=== PATIENT | male | born 1985 | race Two or more races ===

== ENCOUNTER 2019-09-26 10:29 | Emergency (ER) | payer OTHER ==
[~2019-09-26] VITALS: Ht 165.1 cm; Wt 68.0 kg
--- NOTE | 2019-09-26 10:29 | NUR ---
ED Nurse Note: Pt arrived with RA 826 due to anxiety attack after phone call with father. Pt stated he fainted but caught himself with his hands. pt denies head trauma and denies pain.
[2019-09-26 10:30] VITALS: BP 119/81
[2019-09-26] MEDS ORDERED: LORazepam 0.5mg tab ORAL ONE (11:00)
--- NOTE | 2019-09-26 11:11 | Emergency Room Report ---
History of Present Illness General Chief Complaint: General Complaint Source: Patient, EMS Present Illness HPI Patient presents with paramedics for reports of a syncopal episode An argument with his father states that his father called him ' stupid' He began feeling palpitations and anxious and reports Lapse of consciousness after this Denies any headache at this time he feels some mild palpitations otherwise denies any chest pain denies any recent illness denies any medications Allergies: Coded Allergies: No Known Allergies (Unverified , 09/26/19) Patient History Past Medical History: see triage record Reviewed Nursing Documentation: PMH: Agreed; PSxH: Agreed Nursing Documentation-PMH Hx Hypertension: Yes History Of Psychiatric Problem: Yes - ANXIETY, DEPRESSION Review of Systems All Other Systems: negative except mentioned in HPI Physical Exam Vital Signs Date Time Temp Pulse Resp B/P (MAP) Pulse Ox O2 Delivery O2 Flow Rate FiO2 09/26/19 10:25 80 17 119/81 (94) 98 Room Air 09/26/19 10:30 97.9 Sp02 EP Interpretation: reviewed, normal General Appearance: well appearing, no apparent distress Head: normocephalic, atraumatic Eyes: bilateral eye PERRL, bilateral eye EOMI ENT: hearing grossly normal, normal pharynx, TMs + canals normal, uvula midline Neck: full range of motion, supple, no meningismus, no bony tend Respiratory: lungs clear, normal breath sounds, no rhonchi, no respiratory distress, no retraction, no accessory muscle use Cardiovascular #1: normal peripheral pulses, regular rate, rhythm, no edema, no gallop, no JVD, no murmur Gastrointestinal: normal bowel sounds, non tender, soft, no mass, no organomegaly, non-distended, no guarding, no hernia, no pulsatile mass, no rebound Musculoskeletal: normal inspection Neurologic: motor strength/tone normal, body sander III-XII nml as tested, oriented x3 , sensory intact, responsive Psychiatric: mood/affect normal - However reports feeling anxious Skin: no rash Lymphatic: normal inspection, no adenopathy Medical Decision Making Diagnostic Impression: Primary Impression: Syncope ER Course Patient is a fairly complex patient with multiple differential to consideration including but not limited to cardiac cardiopulmonary and vascular emergencies Patient appears to have likely had a vasovagal reaction to stress reaction The EKG is normal limits patient resting comfortably and hemodynamically stable At this time is appropriate for close outpatient follow-up EKG Diagnostic Results Rate: normal Rhythm: NSR ST Segments: no acute changes Rhythm Strip Diag. Results EP Interpretation: yes Rate: 65 Rhythm: NSR, no PVC's, no ectopy Last Vital Signs Date Time Temp Pulse Resp B/P (MAP) Pulse Ox O2 Delivery O2 Flow Rate FiO2 09/26/19 10:30 80 17 Room Air 09/26/19 10:30 97.9 119/81 98 Status: improved Disposition: HOME, SELF-CARE Condition: Improved Additional Instructions: Patient is provided with the discharge instructions notified to follow up with primary doctor in the next 2-3 days otherwise return to the er with any worsening symptoms. Please note that this report is being documented using DRAGON technology. This can lead to erroneous entry secondary to incorrect interpretation by the dictating instrument. Evert Huerta DO Sep 26, 2019 11:11
[2019-09-26 11:32] VITALS: BP 124/79
--- NOTE | 2019-09-26 11:32 | NUR ---
ER DISCHARGE NOTE: Patient is cleared to be discharged per ERMD, pt is aox4, on room air, with stable vital signs. pt was given dc instructions, pt was able to verbalize understanding, pt id band. pt is able to ambulate with steady gait. pt took all belongings. pt dc with mother.
== END 2019-09-26 11:43 | disposition home or self-care (01) ==
LOC: EDBD 10:29 → EMR 11:02
DX: R55 Syncope and collapse (principal); F41.9 Anxiety disorder, unspecified; F32.9 Major depressive disorder, single episode, unspecified; I10 Essential (primary) hypertension
CPT/HCPCS: 99283